=== PATIENT | female | born 1950 | race Caucasian/White ===

== ENCOUNTER 2017-03-30 08:20 | Day surgery (SDC) | payer BC ==
[~2017-03-30] VITALS: Ht 157.5 cm; Wt 64.0 kg
[~2017-03-30 08:20] MED LIST: FLUOXETINE HCL20 MG PO
[2017-03-30] MEDS ORDERED: LEVOTHYROXINE25 MCG PO (08:36)
--- NOTE | 2017-03-30 10:31 | NUR ---
PT IN FOR ROUTINE FIRST SCOPE. SUPPORTED BY HER DAUGHTER ROLANDO. PT RELAXED, SEEMED TO EVEN NOT BE TOO BOTHERED BY PREP DAY EITHER. PT REQUESTED PRAYER, WILL FOLLOW NEEDED
--- NOTE | 2017-03-30 10:57 | NUR ---
03/30/17 Guadalupe7 Yahaira Mary REPORT FROM [facility].
--- NOTE | 2017-04-07 12:08 | OR ---
[facility] [address], [place] [address] Signed DATE OF SERVICE: 03/30/2017 PREOPERATIVE DIAGNOSIS: Screening. POSTOPERATIVE DIAGNOSES: Minimal to moderate sigmoid diverticulosis with narrowing and angulation. Moderately long redundant colon. PROCEDURE: Colonoscopy without biopsy. ESTIMATED BLOOD LOSS: None. INDICATIONS: Alexandra is a 66-year-old female, who was asked to see me for initial screening colonoscopy. She has no lower GI complaints. There is no family history of colon cancer or polyps. In the office, I gave her a pamphlet on colonoscopy and we discussed the nature of the test along with the risks including, but not limited to gas bloating, crampy abdominal pain, bleeding, perforation requiring surgery, and missed diagnosis. We also discussed the need for IV conscious sedation. She expressed understanding and wished to proceed. PROCEDURE NOTE: Alexandra was taken into our endoscopy suite and placed in the left lateral decubitus position. She was given 6 mg of Versed and 125 mcg of fentanyl for the procedure. A digital rectal exam was performed and this was unremarkable. The adult colonoscope was introduced and advanced under direct visualization of the camera. We realized that she has a somewhat narrow redundant sigmoid and left colon. It took extra sedation in order to advance the scope finally into the cecum itself. Her prep w a s good. The scope was then slowly withdrawn. Again, she has moderate sigmoid diverticulosis. They were moderate in size, moderate in number and scattered about. The rectum itself was unremarkable. Upon retroflexion of scope, there was no additional pathology noted above the anal canal. After this, the gas was suctioned out and the colonoscope removed. Overall, Alexandra tolerated the procedure well. RECOMMENDATIONS: Alexandra can follow up in 10 years for repeat colonoscopy. Asya Venegas MD AB/Modl Electronically Signed By: ASYA VENEGAS MD 04/07/17 1208 PATIENT NAME: ALEXANDRA OCAMPO OPERATIVE REPORT DATE OF : 50 PHYSICIAN: ASYA VENEGAS MD REPORT #: [id number] REPORT IS CONFIDENTIAL AND NOT TO BE RELEASED WITHOUT AUTHORIZATION [address] [address] Signed /[id number] Electronically Signed By: ASYA VENEGAS MD 04/07/17 1208 PATIENT NAME: ALEXANDRA OCAMPO OPERATIVE REPORT DATE OF : 50 PHYSICIAN: ASYA VENEGAS MD REPORT #: [id number] REPORT IS CONFIDENTIAL AND NOT TO BE RELEASED WITHOUT AUTHORIZATION
== END 2017-03-30 11:30 | disposition home or self-care (01) ==
LOC: DS 08:20 → OPS 08:20 → DS 09:45 → OPS 11:30
PROVIDERS: Colon & Rectal Surgery
PROC: 0DJD8ZZ Inspection of Lower Intestinal Tract, Via Natural or Artificial Opening Endoscopic (ICD-10-PCS; principal; 2017-03-30 08:45)
DX: Z12.11 Encounter for screening for malignant neoplasm of colon (principal); K57.30 Diverticulosis of large intestine without perforation or abscess without bleeding; E78.5 Hyperlipidemia, unspecified; F32.9 Major depressive disorder, single episode, unspecified; F41.9 Anxiety disorder, unspecified; Z90.710 Acquired absence of both cervix and uterus; Z98.890 Other specified postprocedural states
CPT/HCPCS: 99152; 99153; J2250; J3010; J7120